=== PATIENT | male | born 1995 | race Caucasian/White ===

== ENCOUNTER → 2016-08-23 | Outpatient (CLI) | payer BC ==
--- NOTE | 2016-08-23 10:55 | DIAGNOSTIC IMAGING REPORT ---
LEFT ANKLE MIN 3 VIEWS CLINICAL HISTORY: F/U POST LEFT ANKLE DISLOCATION postreduction COMPARISON: None. DISCUSSION: The bones and joint spaces appear intact. There is no evidence of fracture, dislocation or bony disease. There is no evidence for soft tissue swelling. IMPRESSION: Negative study. Electronically signed by: Zak Ramirez M.D. 08/23/2016 10:54 AM Dictated Date/Time: 08/23/2016 10:53 AM
== END ==
LOC: C.RDSM 10:45
PROVIDERS: ATTEND Internal Medicine
DX: S93.05XA Dislocation of left ankle joint, initial encounter (principal); X58.XXXA Exposure to other specified factors, initial encounter

== ENCOUNTER → 2016-12-04 | Outpatient (CLI) | payer BC ==
--- NOTE | 2016-12-04 11:16 | DIAGNOSTIC IMAGING REPORT ---
LEFT ANKLE 3 VIEWS CLINICAL HISTORY: Left ankle pain. Reported history of ankle dislocation. FINDINGS: 3 views of left ankle are compared to study dated 08/23/2016. The skeletal structures are well mineralized. No fracture is seen. The ankle mortise is intact. A small joint effusion is suggested. Mild soft tissue swelling is present around the ankle. A bone island is incidentally noted in the calcaneus. IMPRESSION: 1. No acute bony abnormality is seen in the left ankle. 2. Small joint effusion and mild soft tissue swelling is identified. Electronically signed by: Levi Pelaez M.D. 12/04/2016 11:14 AM Dictated Date/Time: 12/04/2016 11:13 AM
== END | disposition home or self-care (01) ==
LOC: C.RDSM 07:00
PROVIDERS: ATTEND Internal Medicine
DX: S93.05XA Dislocation of left ankle joint, initial encounter (principal); X58.XXXA Exposure to other specified factors, initial encounter